=== PATIENT | male | born 1990 | race American Indian/Alaskan Native ===

== ENCOUNTER 2018-07-11 20:34 | Emergency (ER) | payer OTHER ==
[2018-07-11 20:46] VITALS: BP 124/77
--- NOTE | 2018-07-11 20:48 | Emergency Department Report ---
Blank Doc - Documentation Documentation: 27 y o male presents with ledt ear swelling x 3 days states his mom tried to drain it yesterday but it filled back denies f/c/n/v ACC evaluate
[2018-07-11] MEDS ORDERED: XYLOCAINE 1% MPF 5 mL INFILTRATI ONE (21:11)
[2018-07-11] MEDS ORDERED: TYLENOL #3 PO ONE (21:12)
[2018-07-11] MEDS ORDERED: IBUPROFEN PO ONE (21:12)
--- NOTE | 2018-07-11 22:34 | Emergency Department Report ---
ED General Adult HPI - General Chief complaint: Skin/Abscess/Foreign Body Stated complaint: L EAR PAIN Time Seen by Provider: 07/11/18 20:45 Source: patient Mode of arrival: Ambulatory Limitations: No Limitations - History of Present Illness Initial comments: Patient is a 27-year-old -[place] male with no past medical history presents to the ED with complaint of painful left earlobe swelling and hematoma with pain after being hit in the ear during martial arts training 3 days ago. Patient states that the pain and swelling have been there for 2 days and that it is pressure-like and tight. Patient denies hearing loss, dizziness, nausea, vomiting, headache, chest pain, shortness of breath, sore throat, nosebleed, change in vision or neck pain. MD Complaint: Left ear lobe swelling, hematoma -: Sudden, days(s) (3) Location: face (left earlobe) Radiation: non-radiation Severity scale (0 -10): 4 Quality: aching, dull Consistency: constant Improves with: none Worsens with: none Associated Symptoms: denies: chest pain, cough, diaphoresis, fever/chills, headaches, loss of appetite, malaise, nausea/vomiting, rash, shortness of breath, syncope, weakness Treatments Prior to Arrival: none - Related Data Previous Rx's Medication Instructions Recorded Last Taken Type Ibuprofen [Motrin] 600 mg PO Q8H PRN #20 tablet 07/11/18 Unknown Rx cephALEXin [Keflex] 500 mg PO Q8HR #21 cap 07/11/18 Unknown Rx Allergies Allergy/AdvReac Type Severity Reaction Status Date / Time No Known Allergies Allergy Verified 07/11/18 20:37 ED Review of Systems ROS: Stated complaint: L EAR PAIN Other details as noted in HPI Comment: All other systems reviewed and negative Constitutional: no symptoms reported, see HPI. denies: diaphoresis, fever, malaise, weakness Eyes: as per HPI. denies: eye pain, eye discharge, vision change ENT: as per HPI, ear pain, other (swelling of left earlobe with fluctuance). denies: throat pain, dental pain, hearing loss, epistaxis, congestion Respiratory: no symptoms reported, see HPI. denies: cough, orthopnea, shortness of breath, SOB with exertion, stridor Cardiovascular: as per HPI. denies: chest pain, palpitations, dyspnea on exertion, orthopnea, edema, syncope, paroxysmal nocturnal dyspnea Endocrine: no symptoms reported, see HPI. denies: excessive sweating, flushing, intolerance to cold, increased thirst, increased urine, unexplained weight loss Gastrointestinal: as per HPI. denies: abdominal pain, nausea, vomiting, diarrhea, constipation, hematemesis Genitourinary: as per HPI. denies: urgency, dysuria, frequency, hematuria, discharge Musculoskeletal: as per HPI. denies: back pain, joint swelling, arthralgia Skin: as per HPI. denies: rash, change in color, change in hair/nails Neurological: as per HPI. denies: headache, weakness, numbness, paresthesias, confusion, vertigo Psychiatric: as per HPI Hematological/Lymphatic: as per HPI ED Past Medical Hx - Past Medical History Previous Medical History?: No - Surgical History Past Surgical History?: No - Social History Smoking Status: Never Smoker - Medications Home Medications: Home Medications Medication Instructions Recorded Confirmed Last Taken Type Ibuprofen [Motrin] 600 mg PO Q8H PRN #20 tablet 07/11/18 Unknown Rx cephALEXin [Keflex] 500 mg PO Q8HR #21 cap 07/11/18 Unknown Rx ED Physical Exam - General Limitations: No Limitations General appearance: alert, in no apparent distress - Head Head exam: Present: atraumatic, normocephalic, normal inspection - Eye Eye exam: Present: normal appearance, PERRL, EOMI. Absent: scleral icterus, nystagmus - ENT ENT exam: Present: normal exam, normal orophraynx, mucous membranes moist, TM's normal bilaterally, other (swollen hematoma over the left earlobe with fluctuance) - Neck Neck exam: Present: normal inspection. Absent: tenderness, full ROM, lymphadenopathy - Respiratory Respiratory exam: Present: normal lung sounds bilaterally. Absent: respiratory distress, wheezes, rales, chest wall tenderness, accessory muscle use, prolonged expiratory - Cardiovascular Cardiovascular Exam: Present: regular rate, normal rhythm, normal heart sounds - GI/Abdominal GI/Abdominal exam: Present: soft, normal bowel sounds. Absent: tenderness, guarding, rebound, hyperactive bowel sounds, hypoactive bowel sounds, organomegaly - Rectal Rectal exam: Present: deferred - Extremities Exam Extremities exam: Present: normal inspection, normal capillary refill. Absent: full ROM, tenderness, pedal edema, joint swelling - Back Exam Back exam: Present: normal inspection, full ROM. Absent: tenderness, CVA tenderness (L), muscle spasm, vertebral tenderness - Neurological Exam Neurological exam: Present: alert, oriented X3, CN II-XII intact, normal gait, reflexes normal - Psychiatric Psychiatric exam: Present: normal affect - Skin Skin exam: Present: warm, dry, intact, normal color ED Course Vital Signs 07/11/18 07/11/18 07/11/18 20:37 20:44 21:50 Temperature 98.2 F 98.2 F Pulse Rate 60 60 Respiratory 18 18 18 Rate Blood Pressure 124/77 124/77 O2 Sat by Pulse 100 100 Oximetry - I & D Left Ear Type of Procedure: Simple Site: left ear lobe Blade Size: 11 I & D Procedure: betadine prep, sterile drapes applied, sterile dressing applied, no gauze wick placed Progress: The left ear lobe hematoma was incised after anesthetizing the area and cleaning it to maintain a sterile environment. A small incision was made and serosanguineous fluid drained from it. The incision was also cleaned thoroughly with normal saline and as much of their liquid was squeezed from the left earlobe. The earlobe was then dressed appropriately and patient is sent home on pain medications as needed. ED Medical Decision Making - Differential Diagnosis traumatic ear lobe pain; traumatic hematoma of left ear lobe Critical care attestation.: If time is entered above; I have spent that time in minutes in the direct care of this critically ill patient, excluding procedure time. ED Disposition Clinical Impression: Contusion of left ear, initial encounter Ear hematoma, left Qualifiers: Encounter type: initial encounter Qualified Code(s): S00.432A - Contusion of left ear, initial encounter Left ear injury Qualifiers: Encounter type: initial encounter Qualified Code(s): S09.91XA - Unspecified injury of ear, initial encounter Disposition: TO HOME OR SELFCARE Is pt being admited?: No Does the pt Need Aspirin: No Condition: Stable Instructions: Contusion in Adults (ED) Additional Instructions: Take medications with food, drink plenty of fluids and follow up with your primary care physician in 7-10 days for reevaluation. Return to the ED immediately if symptoms get worse. Prescriptions: cephALEXin [Keflex] 500 mg PO Q8HR #21 cap Ibuprofen [Motrin] 600 mg PO Q8H PRN #20 tablet PRN Reason: Pain Referrals: MARYELLEN HUBBARD MD [Primary Care Provider] - 3-5 Days Time of Disposition: 22:40 Print Language: UPPER SORBI[place]
== END 2018-07-11 22:49 | disposition home or self-care (01) ==
LOC: ED 20:34
DX: S00.432A Contusion of left ear, initial encounter (principal); W22.8XXA Striking against or struck by other objects, initial encounter; Y93.89 Activity, other specified; Y92.89 Other specified places as the place of occurrence of the external cause; Y99.8 Other external cause status